=== PATIENT | female | born 1990 | race Two or more races ===

== ENCOUNTER 2019-08-28 16:03 | Emergency (ER) | payer OTHER ==
[~2019-08-28] VITALS: Ht 165.1 cm; Wt 117.3 kg
[2019-08-28 16:19] VITALS: BP 156/105
[2019-08-28] MEDS ORDERED: ACETAMINOPHEN 500 MG TABLET ONE (16:26)
[2019-08-28] MEDS ORDERED: ACETAMINOPHEN 500 MG TABLET PO ONE (16:30)
[2019-08-28 17:00] LABS: RAPID INFLUENZA A POSITIVE (Negative); RAPID INFLUENZA B Negative (Negative)
== END 2019-08-28 20:04 | disposition home or self-care (01) ==
LOC: ED 17:03
DX: J10.1 Influenza due to other identified influenza virus with other respiratory manifestations (principal); R51 Headache; M79.10 Myalgia, unspecified site; Z87.891 Personal history of nicotine dependence
CPT/HCPCS: 87400; 99283